=== PATIENT | male | born 1945 | race Caucasian/White ===

== ENCOUNTER → 2017-09-01 | Outpatient (CLI) | payer OTHER, BC ==
[~2017-09-01] MED LIST: ALEVE220 MG PO; ASPIR 8181 MG PO; FLONASE 0.05%50 MCG NASAL; MULTIVITAMINS1 EAC7 PO; PRILOSEC20 MG PO; ZOCOR40 MG PO
== END ==
LOC: ULTRA 10:38
DX: E04.9 Nontoxic goiter, unspecified (principal); R22.1 Localized swelling, mass and lump, neck